=== PATIENT | male | born 1990 | race Two or more races ===

== ENCOUNTER 2024-08-14 23:37 | Emergency (ER) | payer OTHER ==
[~2024-08-14] VITALS: Ht 177.8 cm; Wt 86.2 kg
[2024-08-15] MEDS ORDERED: IV NS 0.9% 1,000 ML IV ONE
[2024-08-15 00:02] VITALS: BP 138/80; TEMP 97.6; O2SAT 90
== END 2024-08-15 00:02 | disposition left against medical advice (07) ==
LOC: ER 23:39
DX: T40.2X1A Poisoning by other opioids, accidental (unintentional), initial encounter (principal); R00.2 Palpitations; Z53.29 Procedure and treatment not carried out because of patient's decision for other reasons; Y92.89 Other specified places as the place of occurrence of the external cause